=== PATIENT | male | born 1980 | race Two or more races ===

== ENCOUNTER 2019-10-26 08:06 | Inpatient (IN) | payer MEDICAID ==
[~2019-10-26] VITALS: Ht 170.2 cm; Wt 52.7 kg
--- NOTE | 2019-10-26 10:00 | NUR ---
MS/rn cardiovascular New admission from [place] with diagnoses of pneumonia. Patient fully admitted, picures taken and placed in chart. Awaiting admitting orders.
--- NOTE | 2019-10-26 11:00 | NUR ---
MS/RN Contact information Patient's residence called to ask for information regarding patient's history and medications. Given number of payroll and benefits manager who stated that she would fax over medication list and patient's history. -Eduardo -Sales Order Processor
[2019-10-26] MEDS ORDERED: ACETAMINOPHEN 325 MG TABLET PO PRN (12:00)
[2019-10-26] MEDS ORDERED: Z GUARD REMEDY 2 OZ OINT TP PRN (12:00)
[2019-10-26] MEDS ORDERED: MAG HYDROX/AL HYDROX/SIMETH 30 ML UDC PO PRN (12:00)
[2019-10-26] MEDS ORDERED: ONDANSETRON HCL/PF 4 MG/2 ML VIAL IVP PRN (12:00)
[2019-10-26] MEDS ORDERED: ZOLPIDEM TARTRATE 5 MG TABLET PO PRN (12:00)
[2019-10-26] MEDS ORDERED: HYDROCODONE/APAP 5/325MG TABLET PO PRN (12:00)
--- NOTE | 2019-10-26 12:57 | NUR ---
MS/RN Orders Orders enter by Dr Gonzales, noted and carried out.
[2019-10-26] MEDS ORDERED: LEVOFLOXACIN 500 MG /D5W 100ML 500 MG in PREMIX 1 EA IV ONE (13:00)
[2019-10-26] MEDS: IV NS 0.9% 1,000 ML IV PRN (13:21)
[2019-10-26 13:32] LABS: CALCIUM, SERUM 8.5 mg/dL (8.5-10.1); CREATININE 0.7 mg/dL (0.6-1.3); POTASSIUM 4.3 mmol/L (3.5-5.1)
[2019-10-26] MEDS ORDERED: LACT1CAP71 PO (13:45)
[2019-10-26] MEDS ORDERED: ALBUT2 CONTNEB (13:45)
[2019-10-26] MEDS ORDERED: FOLI0.8T PO (13:45)
[2019-10-26] MEDS ORDERED: DOCU-141 PO (13:45)
[2019-10-26] MEDS ORDERED: CHLO473M3 MM (13:45)
[2019-10-26] MEDS ORDERED: ACET325T53 PO (13:45)
[2019-10-26] MEDS ORDERED: DIVA-78 PO (13:45)
[2019-10-26] MEDS ORDERED: FLUT16SP16 NS (13:45)
[2019-10-26] MEDS ORDERED: LACT-179 PO (13:45)
[2019-10-26] MEDS ORDERED: LACT10SO68 PO (13:45)
[2019-10-26] MEDS ORDERED: ASPI-605 PO (13:45)
[2019-10-26] MEDS ORDERED: MAGN400O6 PO (13:45)
[2019-10-26] MEDS ORDERED: MULT-439 PO (13:45)
[2019-10-26] MEDS ORDERED: CALC1TAB30 PO (13:45)
[2019-10-26] MEDS ORDERED: POLY17PO4 PO (13:45)
[2019-10-26] MEDS ORDERED: BISA10SU11 RC (13:45)
[2019-10-26] MEDS ORDERED: FOLI0.8C2 PO (13:45)
--- NOTE | 2019-10-26 13:46 | NUR ---
MARKO BERMUDEZ, PT CAME FROM: [facility]. [facility] [address] [place] [address]. [place] [address] PHONE:[phone] FAX [phone] FRANK [phone] ANDRÉS GARCIA [phone] ADONIS GRANGER RN [phone] ATTENDING MD: CRISTY MORALES [phone] FAMILY: FELICIA/ IRAM [phone] BRITTNI [phone]
--- NOTE | 2019-10-26 14:58 | NUR ---
MS/RN VTE score VTE score 4, Dr Gonzales made aware, will place orders.
[2019-10-26] MEDS ORDERED: BISACODYL SUPP (10 MG) 10 MG/SUPP.RECT SUPP.RECT RC PRN (15:00)
[2019-10-26] MEDS: LACTULOSE 10 G/15 ML UDC (PYXIS) PO SCH (15:46)
[2019-10-26 16:00] VITALS: BP 121/53
[2019-10-26] MEDS: DIVALPROEX SODIUM 500 MG TABLET.DR PO SCH (16:10)
[2019-10-26] MEDS: CHLORHEXIDINE GLUCONATE 15 ML UDC MM SCH (16:10)
[2019-10-26] MEDS: LACTOBACILLUS RHAMNOSUS GG 1 EACH CAP.SPRINK PO SCH (16:10)
[2019-10-26] MEDS: ENOXAPARIN SODIUM 40 MG/0.4 ML DISP.SYRIN SQ SCH (16:16)
[2019-10-26 16:24] LABS: BASOPHILS % (AUTO) 0.1 % (0.0-2.0); EOSINOPHILS % (AUTO) 0.5 % (0.0-6.0); HEMATOCRIT 54 % (39-51); LYMPHOCYTES # (AUTO) 1.5 /CMM (0.8-4.8); LYMPHOCYTES % (AUTO) 8.7 % (20.0-44.0); MEAN CORPUSCULAR HGB CONC 32 g/dl (31.0-36.0); MEAN CORPUSCULAR VOLUME 92 fL (80-96); MONOCYTES # (AUTO) 1.4 /CMM (0.1-1.30); MONOCYTES % (AUTO) 7.7 % (2.0-12.0); NEUTROPHILS # (AUTO) 14.6 /CMM (1.8-8.9); PLATELET COUNT (AUTO) 125 /CMM (150-450); RED BLOOD CELL COUNT(AUTO) 5.83 MIL/uL (4.5-6.0); WHITE BLOOD COUNT (AUTO) 17.6 K/uL (4.3-11.0)
[2019-10-26] MEDS: ENSURE ENLIVE CHOC 237 ML CAN PO SCH (17:00)
--- NOTE | 2019-10-26 18:11 | NUR ---
MS/RN End note Patient remians in stable condition, all needs attended. Skin kept clean and dry, heels off loaded on pillows to prevent skin breakdown. Patient placed on isoflex mattress. All medications administered crushed with apple sauce, assisted with dinner, patient is feeder and aspiration risk. Will endorse to shift superintendent.
--- NOTE | 2019-10-26 18:27 | NUR ---
MS/RN Latic acid Lactic acid noted to be still elevated at 2.1, order given to infuse 500ml normal saline X1.
[2019-10-26] MEDS ORDERED: IV NS 0.9% 500 ML IV ONE (18:30)
[2019-10-26 18:37] LABS: BILIRUBIN,DIRECT 0.3 mg/dL (0.0-0.2); BILIRUBIN,TOTAL 1.1 mg/dL (0.2-1.0)
--- NOTE | 2019-10-26 19:05 | NUR ---
SOLDER SPRAYER NOTES RECEIVED PT IN BED AND AWAKE. RESPIRATIONS EVEN AND UNLABORED WITH NO S/S OF ACUTE DISTRESS OR SOB NOTED. NO S/S OF PAIN AT THIS TIME. PT NOTED WITH RFA #20G PATENT AND INTACT INFUSING NS @60CC/HR. SAFETY MEASURES IN PLACE WITH BED IN LOWEST LOCKED POSITION WITH SIDE RAILS UP X2. CALL LIGHT WITHIN REACH. WILL CONTINUE TO MONITOR.
[2019-10-26 20:00] VITALS: BP 130/66
--- NOTE | 2019-10-26 20:11 | NUR ---
PAINTER AND DECORATOR APPRENTICE NOTES RECEIVED CRITICAL LAB VALUE FROM LAB FOR LACTIC ACID AT 2.8. PT FINISHING IV FLUIDS, BOLUS. MADE AWARE, ORDER RECHECK FOR LACTIC ACID DRAW. WILL CONTINUE TO MONITOR.
[2019-10-27 07:35] LABS: BASOPHILS % (AUTO) 0.1 % (0.0-2.0); EOSINOPHILS % (AUTO) 2.4 % (0.0-6.0); HEMATOCRIT 48 % (39-51); HEMOGLOBIN 15.7 g/dL (13.5-17.5); LYMPHOCYTES # (AUTO) 1.6 /CMM (0.8-4.8); MEAN CORPUSCULAR HGB CONC 33 g/dl (31.0-36.0); MEAN CORPUSCULAR VOLUME 89 fL (80-96); MONOCYTES # (AUTO) 0.7 /CMM (0.1-1.30); MONOCYTES % (AUTO) 7.1 % (2.0-12.0); NEUTROPHILS # (AUTO) 7.9 /CMM (1.8-8.9); NEUTROPHILS % (AUTO) 75.4 % (43.0-81.0); PLATELET COUNT (AUTO) 110 /CMM (150-450); RED BLOOD CELL COUNT(AUTO) 5.32 MIL/uL (4.5-6.0); WHITE BLOOD COUNT (AUTO) 10.5 K/uL (4.3-11.0)
--- NOTE | 2019-10-27 07:39 | NUR ---
MS/RN Opening note Patient recieved from awake overnight counselor. Alert to self, no respiratory distress noted, two liters oxygen via nasal cannula, saturation 95%. IV fluids infusing at 60ml/hr, no signs of infiltration from heplock site. Saftey measures in place, bed in low setting, side rails X3 in upright position. Will continue to monitor and ensure safety.
--- NOTE | 2019-10-27 07:45 | NUR ---
SENIOR RESEARCH PROJECT MANAGER NOTES PT IN BED AND AWAKE. RESPIRATIONS EVEN AND UNLABORED WITH NO S/S OF ACUTE DISTRESS OR SOB NOTED THROUGHOUT SHIFT. NO S/S OF PAIN AT THIS TIME. PT NOTED WITH RFA #20G PATENT AND INTACT INFUSING NS @60CC/HR. SAFETY MEASURES IN PLACE WITH BED IN LOWEST LOCKED POSITION WITH SIDE RAILS UP X2. PT KEPT CLEAN, DRY, AND COMFORTABLE. CALL LIGHT WITHIN REACH. WILL ENDORSE TO ONCOMING NURSE FOR YRIS.
[2019-10-27 07:49] LABS: CALCIUM, SERUM 7.7 mg/dL (8.5-10.1); CREATININE 0.6 mg/dL (0.6-1.3); MAGNESIUM 1.6 mg/dL (1.8-2.4); PHOSPHORUS 2.2 mg/dL (2.5-4.9); POTASSIUM 3.6 mmol/L (3.5-5.1)
[2019-10-27 08:00] VITALS: BP 115/60
[2019-10-27] MEDS: DOCUSATE SODIUM 100 MG CAPSULE PO SCH (08:07)
[2019-10-27] MEDS: MULTIVIT W/MINERALS 1 TAB TABLET PO SCH (08:07)
[2019-10-27] MEDS: CHLORHEXIDINE GLUCONATE 15 ML UDC MM SCH ×2 (08:07→16:46)
[2019-10-27] MEDS: LACTOBACILLUS RHAMNOSUS GG 1 EACH CAP.SPRINK PO SCH ×2 (08:07→16:46)
[2019-10-27] MEDS: LACTULOSE 10 G/15 ML UDC (PYXIS) PO SCH (08:07)
[2019-10-27] MEDS: CALCIUM CARB 600MG /VIT D 1 EACH TABLET PO SCH (08:07)
[2019-10-27] MEDS: POLYETHYLENE GLYCOL 3350 17 GM POWD.PACK PO SCH (08:07)
[2019-10-27] MEDS: ASPIRIN EC 81 MG TABLET.DR PO SCH (08:07)
[2019-10-27] MEDS: FOLIC ACID 1 MG TABLET PO SCH (08:07)
[2019-10-27] MEDS: DIVALPROEX SODIUM 500 MG TABLET.DR PO SCH ×2 (08:07→16:46)
[2019-10-27] MEDS: FLUTICASONE PROPIONATE 16 GM BOTTLE NS SCH (08:12)
[2019-10-27] MEDS: ENSURE ENLIVE CHOC 237 ML CAN PO SCH ×2 (08:15→16:48)
--- NOTE | 2019-10-27 08:22 | NUR ---
WOUND CARE CONSULT: PT EATING AT THIS TIME. REVIEWED CHART, NURSING DOCUMENTATION AND PHOTOS WHICH SHOW SACRAL SCAR AND SCARRING TO RT ARM, PRESENT ON ADMISSION. PT IS ON [place] ISOFLEX LOW AIRLOSS BED. RECOMMENDATIONS MADE FOR SKIN PROTECTION. DISCUSSED WITH NURSING STAFF. WILL SEE PRSergei MARQUEZ IN AGREEMENT WITH PLAN OF CARE.
--- NOTE | 2019-10-27 08:55 | NUR ---
MS/RN Medications Morning medications administered, crushed with breakfast.
--- NOTE | 2019-10-27 09:24 | NUR ---
MS/RN Labs Morning labs reviewed: -WBC 10.5 -H&H
[2019-10-27] MEDS: IV NS 0.9% 1,000 ML IV PRN (11:09)
[2019-10-27] MEDS ORDERED: NEUTRA PHOS 1 POWD.PACKET PO ONE (11:30)
[2019-10-27] MEDS: Magnesium 1GM/D5W 100ML PREMIX 100 ML IV SCH ×2 (11:45→12:17)
--- NOTE | 2019-10-27 11:51 | NUR ---
MS/RN Magnesium Magnesium level 1.6, replaced with 2gm IVPB, phos 2.2, replaced with Kphos.
--- NOTE | 2019-10-27 13:00 | NUR ---
MS/BETINA Lamas administered IVAB as ordered, no reaction noted.
[2019-10-27] MEDS: LEVOFLOXACIN 500 MG /D5W 100ML 500 MG in PREMIX 1 EA IV SCH (13:02)
[2019-10-27 16:00] VITALS: BP 117/73
--- NOTE | 2019-10-27 16:00 | NUR ---
MS/RN S/B Dr Souza Seen by Dr Souza - labs ordered for tomorrow, to continue with current antibiotics and plan of care.
--- NOTE | 2019-10-27 17:19 | NUR ---
MS/RN Medications Evening medications administered, crushed with apple sauce. All ordal intake to be given slowly as patient is very high risk of aspiration.
--- NOTE | 2019-10-27 19:11 | NUR ---
MS/RN End note Patient remains in stable condition, all needs attended. Will endorse to night clerk.
--- NOTE | 2019-10-27 19:15 | NUR ---
RN OPENING NOTES Received patient awake, A/O to self only. On RA, no SOB/respiratory distress noted at this time. No s/sx of respiratory distress noted at this time. On aspiration and fall precautions. Will continue to monitor accordingly.
[2019-10-27 20:00] VITALS: BP_SYST 117; BP_SYST 159; BP_DIAS 101; BP_DIAS 82
[2019-10-27] MEDS: ENOXAPARIN SODIUM 40 MG/0.4 ML DISP.SYRIN SQ SCH (21:56)
[2019-10-28] MEDS: IV NS 0.9% 1,000 ML IV PRN ×3 (06:57→22:05)
[2019-10-28 06:59] LABS: BASOPHILS % (AUTO) 0.2 % (0.0-2.0); HEMATOCRIT 56 % (39-51); HEMOGLOBIN 18.2 g/dL (13.5-17.5); LYMPHOCYTES # (AUTO) 1.6 /CMM (0.8-4.8); MEAN CORPUSCULAR HGB CONC 33 g/dl (31.0-36.0); MEAN CORPUSCULAR VOLUME 90 fL (80-96); MONOCYTES # (AUTO) 0.6 /CMM (0.1-1.30); MONOCYTES % (AUTO) 10.6 % (2.0-12.0); NEUTROPHILS # (AUTO) 3.4 /CMM (1.8-8.9); NEUTROPHILS % (AUTO) 58.2 % (43.0-81.0); PLATELET COUNT (AUTO) 122 /CMM (150-450); RED BLOOD CELL COUNT(AUTO) 6.18 MIL/uL (4.5-6.0); WHITE BLOOD COUNT (AUTO) 5.9 K/uL (4.3-11.0)
--- NOTE | 2019-10-28 06:59 | NUR ---
RN CLOSING NOTES Patient on bed asleep, easily awaken. On RA, no s/sx of discomfort noted at this time. All nursing needs attended, due meds given as ordered. Afebrile the whole shift. No new unusualities noted. Endorsed.
--- NOTE | 2019-10-28 07:25 | NUR ---
MS RN NOTES RECEIVED PATIENT IN BED. ALERT AND AWAKE. NON-VERBAL. RESPONSIVE TO VERBAL AND TACTILE STIMULI. NO SOB. HOB ELEVATED. RT FOREARM #20 INTACT AND PATENT INFUSING NS AT 60 ML/HR TRAVIS WELL. BED IN LOWEST POSITION, LOCKED. BED ALARM ON. CALL LIGHT WITHIN REACH.
[2019-10-28 07:46] LABS: CALCIUM, SERUM 8.9 mg/dL (8.5-10.1); CREATININE 0.7 mg/dL (0.6-1.3); PHOSPHORUS 3.5 mg/dL (2.5-4.9); POTASSIUM 4.2 mmol/L (3.5-5.1)
[2019-10-28 08:00] VITALS: BP 134/88
[2019-10-28] MEDS: CHLORHEXIDINE GLUCONATE 15 ML UDC MM SCH ×2 (10:03→17:14)
[2019-10-28] MEDS: LACTULOSE 10 G/15 ML UDC (PYXIS) PO SCH (10:03)
[2019-10-28] MEDS: ASPIRIN EC 81 MG TABLET.DR PO SCH (10:04)
[2019-10-28] MEDS: ENSURE ENLIVE CHOC 237 ML CAN PO SCH ×2 (10:04→17:14)
[2019-10-28] MEDS: DIVALPROEX SODIUM 500 MG TABLET.DR PO SCH ×2 (10:04→17:14)
[2019-10-28] MEDS: DOCUSATE SODIUM 100 MG CAPSULE PO SCH (10:04)
[2019-10-28] MEDS: LACTOBACILLUS RHAMNOSUS GG 1 EACH CAP.SPRINK PO SCH ×2 (10:04→17:14)
[2019-10-28] MEDS: POLYETHYLENE GLYCOL 3350 17 GM POWD.PACK PO SCH (10:04)
[2019-10-28] MEDS: MULTIVIT W/MINERALS 1 TAB TABLET PO SCH (10:05)
[2019-10-28] MEDS: FOLIC ACID 1 MG TABLET PO SCH (10:07)
[2019-10-28] MEDS: CALCIUM CARB 600MG /VIT D 1 EACH TABLET PO SCH (10:07)
[2019-10-28] MEDS: FLUTICASONE PROPIONATE 16 GM BOTTLE NS SCH (10:12)
[2019-10-28] MEDS: LEVOFLOXACIN 500 MG /D5W 100ML 500 MG in PREMIX 1 EA IV SCH (14:03)
[2019-10-28 16:00] VITALS: BP 115/61
--- NOTE | 2019-10-28 18:55 | NUR ---
MS RN NOTES PATIENT RESTING COMFORTABLY IN BED. NO S/S OF RESPIRATORY DISTRESS. HOB ELEVATED. LEFT FOREARM #22 INTACT AND PATENT INFUSING NS AT 60 ML/HR TRAVIS WELL. ASPIRATION PRECAUTIONS OBSERVED AT ALL TIMES. FREQUENT VISUAL CHECK DONE. BED IN LOWEST POSITION, LOCKED. BED ALARM ON. CALL LIGHT WITHIN REACH.IN NO APPARENT DISTRESS.
[2019-10-28 20:00] VITALS: BP 159/101
[2019-10-28] MEDS: ENOXAPARIN SODIUM 40 MG/0.4 ML DISP.SYRIN SQ SCH (20:19)
[2019-10-29 06:48] LABS: BASOPHILS % (AUTO) 0.7 % (0.0-2.0); EOSINOPHILS % (AUTO) 5.6 % (0.0-6.0); HEMATOCRIT 55 % (39-51); HEMOGLOBIN 18.3 g/dL (13.5-17.5); LYMPHOCYTES # (AUTO) 2.6 /CMM (0.8-4.8); LYMPHOCYTES % (AUTO) 37.3 % (20.0-44.0); MEAN CORPUSCULAR HGB CONC 34 g/dl (31.0-36.0); MEAN CORPUSCULAR VOLUME 89 fL (80-96); MONOCYTES # (AUTO) 0.6 /CMM (0.1-1.30); MONOCYTES % (AUTO) 8.4 % (2.0-12.0); NEUTROPHILS # (AUTO) 3.3 /CMM (1.8-8.9); PLATELET COUNT (AUTO) 125 /CMM (150-450); RED BLOOD CELL COUNT(AUTO) 6.15 MIL/uL (4.5-6.0)
--- NOTE | 2019-10-29 06:56 | NUR ---
RN CLOSING NOTES Patient awake on bed. No new unusualities noted within the shift. Due meds given as ordered, crushed given with pudding, tolerating well. On aspiration precautions. Afebrile the whole shift, occasional nonproductive cough noted. Endorsed.
--- NOTE | 2019-10-29 07:20 | NUR ---
MS/RN NOTE THE PATIENT IS RECEIVED IN BED. AWAKE, ALERT TO SELF, NON-VERBAL. IN ROOM AIR, RESPIRATION REGULAR AND UNLABORED. NO MANIFESTATION OF DISTRESS NOTED. LF G 22 PATENT AND NS INFUSING AT 60ML/HR. NO S/S INFILTRATION NOTED. BED LOW AND LOCKED. SIDE RAILS UP X3. CALL LIGHT WITHIN REACH. WILL CONTINUE TO MONITOR.
[2019-10-29 07:27] LABS: CREATININE 0.7 mg/dL (0.6-1.3)
[2019-10-29 08:00] VITALS: BP 123/79
[2019-10-29] MEDS: FLUTICASONE PROPIONATE 16 GM BOTTLE NS SCH (09:00)
[2019-10-29] MEDS: ENSURE ENLIVE CHOC 237 ML CAN PO SCH (09:24)
[2019-10-29] MEDS: POLYETHYLENE GLYCOL 3350 17 GM POWD.PACK PO SCH (09:24)
[2019-10-29] MEDS: DOCUSATE SODIUM 100 MG CAPSULE PO SCH (09:24)
[2019-10-29] MEDS: CHLORHEXIDINE GLUCONATE 15 ML UDC MM SCH (09:24)
[2019-10-29] MEDS: LACTULOSE 10 G/15 ML UDC (PYXIS) PO SCH (09:24)
[2019-10-29] MEDS: CALCIUM CARB 600MG /VIT D 1 EACH TABLET PO SCH (09:24)
[2019-10-29] MEDS: DIVALPROEX SODIUM 500 MG TABLET.DR PO SCH (09:24)
[2019-10-29] MEDS: LACTOBACILLUS RHAMNOSUS GG 1 EACH CAP.SPRINK PO SCH (09:24)
[2019-10-29] MEDS: MULTIVIT W/MINERALS 1 TAB TABLET PO SCH (09:24)
[2019-10-29] MEDS: ASPIRIN EC 81 MG TABLET.DR PO SCH (09:24)
[2019-10-29] MEDS: FOLIC ACID 1 MG TABLET PO SCH (09:24)
[2019-10-29 11:11] LABS: EOSINOPHILS % (MANUAL) 6 % (0-4); LYMPHOCYTES % (MANUAL) 41 % (16-48); MONOCYTES % (MANUAL) 6 % (0-11.0); NEUTROPHILS % (MANUAL) 47 (42-76)
[2019-10-29] MEDS ORDERED: LEVOFLOXACIN (500MG) 500 MG TABLET PO SCH (13:00)
--- NOTE | 2019-10-29 15:13 | NUR ---
MS/RN NOTE THE PATIENT IS ALERT RO SELF, NON-VERBAL. NO MANIFESTATION OF DISTRESS NOTES. RESPIRATION REGULAR AND UNLABORED. PATIENT IN STABLE CONDITION. LFA G 22 IV LINE REMOVED WITH NO BLEEDING FROM THE SITE. DISCHARGE EDUCATION/INSTRUCTION PROVIDED TO THE PATIENT AN RECEIVING NURSE KIMMIE. PRESCRIPTION PROVIDED AND COPY LEFT IN THE CHART. THE PATIENT GOT PICKED UP VIA AMBULANCE AND LEFT THE HOSPITAL IN STABLE CONDITION.
== END 2019-10-29 13:45 | disposition home or self-care (01) | DRG 720 ==
LOC: TELE 09:36 → MED 10-27 11:11
PROVIDERS: ADMIT Nurse Practitioner Acute Care; ATTEND Nurse Practitioner Acute Care
DX: A41.9 Sepsis, unspecified organism (principal); G93.41 Metabolic encephalopathy; E87.2 Acidosis; D72.829 Elevated white blood cell count, unspecified; G80.0 Spastic quadriplegic cerebral palsy; D68.59 Other primary thrombophilia; G40.909 Epilepsy, unspecified, not intractable, without status epilepticus; E44.0 Moderate protein-calorie malnutrition; Z68.1 Body mass index [BMI] 19.9 or less, adult; E83.39 Other disorders of phosphorus metabolism; E83.42 Hypomagnesemia; M81.0 Age-related osteoporosis without current pathological fracture; K59.00 Constipation, unspecified; J15.9 Unspecified bacterial pneumonia
CPT/HCPCS: 36415; 71045-TC; 80048-TC; 80061-TC; 82247-TC; 82248-TC; 83605-TC; 83735-TC; 84100-TC; 85025-TC; 87081-TC; A4216; G0378; J1650; J1956; J3475; J7030; J7050